=== PATIENT | male | born 1955 | race Caucasian/White ===

== ENCOUNTER → 2018-04-29 16:16 | Outpatient (CLI) | payer OTHER, SELFPAY ==
--- NOTE | 2018-04-29 16:18 | DI.MRI.S_ITS ---
PROCEDURE: MR JUAN DANIEL WO/W CON INDICATIONS: 62-year-old male status post scrotal surgery, with suspected anal fistula source of infection. TECHNIQUE: Coronal HASTE through the pelvis, oblique axial and coronal T1 and T2 fast spin echo through the anal canal. After the administration of contrast, oblique axial and coronal VIBE or T1 fast spin echo with fast saturation through the anal canal. COMPARISON: [facility], , TESTICLE IMAGING, 03/06/2018, 8:37. [facility], , TESTICLE IMAGING, 01/27/2018, 13:06. FINDINGS: Image quality: Excellent. Anorectal region: A right extra-sphincteric sinus track is present from the 2 to 4:00 positions, best seen on postcontrast images, with inferior skin opening just inferior to the anal verge on series 9 image 27. Additional enhancing right paramedian extra sphincteric sinus track is also noted just inferior to the anal verge on series 9 image 28, extending up to 13 cm anteriorly towards the scrotum. No additional fistula tracks present more superiorly between the internal and external anal sphincters. No rim-enhancing fluid collections to suggest associated abscess. Other soft tissues: Bladder wall thickness is normal. Trace bilateral scrotal hydroceles are present, as well as asymmetric small fluid within a patent right processus vaginalis. There is residual diffuse scrotal wall inflammatory thickening and enhancement. Visualized bowel loops are normal in caliber. Bones: Visualized bony structures demonstrate normal background marrow signal. There is significant L4-L5 disc degeneration. There is geographic lesion within the superior right femoral head with central fatty marrow signal, consistent with avascular necrosis. IMPRESSION: 1. Right paramedian extra sphincteric sinus track just inferior to the anal verge, tracking anteriorly up to 13 cm towards the scrotum. No associated abscess. 2. Additional left paramedian extra sphincteric sinus track from the 2 to 4:00 positions, tracking inferiorly with skin opening just below the anal verge. No visible communication with the anal canal to suggest true anal fistula. 3. Residual diffuse scrotal skin edema and enhancement, consistent with cellulitis and/or postoperative change. Trace bilateral scrotal hydroceles are present, as well as a fluid within a right patent processus vaginalis. 4. Asymmetric superior right femoral head avascular necrosis. In conjunction with the bilateral extra sphincteric perianal sinus tracts, findings suggest background Crohn's disease. Dictated by: Karlos Romero M.D. on 05/09/2018 at 9:07 Approved by: Karlos Romero M.D. on 05/09/2018 at 9:35
== END ==
PROVIDERS: Family Provider Internal Medicine; PCP Internal Medicine; Visit Provider Student in an Organized Health Care Education/Training Program
DX: K60.3 Anal fistula (principal); M87.851 Other osteonecrosis, right femur
CPT/HCPCS: 72197

== ENCOUNTER → 2019-03-22 11:04 | Outpatient (CLI) | payer OTHER, SELFPAY ==
[2019-03-22 11:50] LABS: Add Manual Diff / Slide Review NO; Basophils Absolute Auto 100 /uL (0-100); Basophils Percent Auto 1.2 % (0-2); Eosinophils Absolute Auto 200 /uL (0-450); Hematocrit 46.6 % (41-53); Hemoglobin 15.3 g/dL (13.5-17.5); Lymphocytes Absolute Auto 2100 /uL (1100-4500); Lymphocytes Percent Auto 25.5 % (25-40); Mean Corpuscular HGB Conc 32.9 % (30-36); Mean Corpuscular Hemoglobin 28.7 PG (26-34); Mean Corpuscular Volume 87.2 fL (80-100); Monocytes Absolute Auto 500 /uL (0-900); Monocytes Percent Auto 6.6 % (3-14); Neutrophils Absolute Auto 5200 /uL (1500-7000); Neutrophils Percent Auto 63.7 % (50-75); Platelet Count 141 X10^3/uL (150-400); Red Blood Cell Count 5.34 X10^6/uL (4.5-5.9); Red Cell Distribution Width 13.3 % (11.6-14.8); White Blood Cell Count 8.2 X10^3/uL (4.5-11.0)
[2019-03-22 12:32] LABS: Alanine Aminotransferase 20 IU/L (21-72); Albumin Globulin Ratio 1.1 (1.0-2.8); Alkaline Phosphatase 68 U/L (38-126); Aspartate Aminotransferase 19 IU/L (17-59); BUN Creatinine Ratio 22.5 (6-22); Bilirubin Total 0.4 mg/dL (0.2-1.3); Blood Urea Nitrogen 18 mg/dL (9-20); Carbon Dioxide 32 mmol/L (22-32); Chloride 101 mmol/L (98-107); Cholesterol 188 mg/dL (140-199); Estimated Glomerular Filt Rate > 60.0 mL/min (>60); Globulin 3.6 g/dL (1.7-4.1); Glucose 125 mg/dL (80-110); HDL Cholesterol 31 mg/dL (40-60); LDL Cholesterol Calculated 134 mg/dL (<100); Potassium 4.9 mmol/L (3.4-5.1); Sodium 139 mmol/L (137-145); Total Protein 7.6 g/dL (6.3-8.2); Triglycerides 115 mg/dL (35-150)
[2019-03-22 12:41] LABS: Digoxin 1.3 ng/mL (0.8-2.0)
[2019-03-22 13:04] LABS: HEMOLYSIS < 15 (0-50); Prostate Specific Antigen Scrn 1.54 ng/mL (0.1-4.0)
[2019-03-22 13:05] LABS: TSH w/ Reflex to FT4 1.83 uIU/mL (0.47-4.68)
== END ==
PROVIDERS: PCP Internal Medicine; Visit Provider Internal Medicine
DX: E11.9 Type 2 diabetes mellitus without complications (principal); E03.9 Hypothyroidism, unspecified; E66.9 Obesity, unspecified
CPT/HCPCS: 36415; 80053; 80061; 80162; 84443; 85025; G0103

== ENCOUNTER → 2020-01-25 09:56 | Outpatient (CLI) | payer OTHER, SELFPAY ==
[2020-01-25 10:36] LABS: Add Manual Diff / Slide Review NO; Basophils Absolute Auto 100 /uL (0-100); Basophils Percent Auto 0.7 % (0-2); Eosinophils Absolute Auto 200 /uL (0-450); Eosinophils Percent Auto 2.2 % (2-4); Hematocrit 44.6 % (41-53); Hemoglobin 15.1 g/dL (13.5-17.5); Lymphocytes Absolute Auto 2100 /uL (1100-4500); Lymphocytes Percent Auto 24.5 % (25-40); Mean Corpuscular HGB Conc 33.9 % (30-36); Mean Corpuscular Hemoglobin 29.3 PG (26-34); Mean Corpuscular Volume 86.5 fL (80-100); Monocytes Absolute Auto 500 /uL (0-900); Monocytes Percent Auto 6.1 % (3-14); Neutrophils Absolute Auto 5600 /uL (1500-7000); Neutrophils Percent Auto 66.5 % (50-75); Platelet Count 132 X10^3/uL (150-400); Red Blood Cell Count 5.15 X10^6/uL (4.5-5.9); Red Cell Distribution Width 13.4 % (11.6-14.8); White Blood Cell Count 8.4 X10^3/uL (4.5-11.0)
[2020-01-25 11:18] LABS: Hemoglobin A1C% w Est Avg Glu 10.1 % (4.0-6.0)
[2020-01-25 11:48] LABS: Alanine Aminotransferase 18 IU/L (<50); Albumin 3.9 g/dL (3.5-5.0); Albumin Globulin Ratio 1.1 (1.0-2.8); Alkaline Phosphatase 87 U/L (38-126); Aspartate Aminotransferase 19 IU/L (17-59); Bilirubin Total 0.7 mg/dL (0.2-1.3); Blood Urea Nitrogen 14 mg/dL (9-20); Carbon Dioxide 27 mmol/L (22-32); Chloride 99 mmol/L (98-107); Estimated Glomerular Filt Rate > 60.0 mL/min (>60); Globulin 3.4 g/dL (1.7-4.1); Glucose 263 mg/dL (80-110); HEMOLYSIS < 15 (0-50); Potassium 4.6 mmol/L (3.4-5.1); Sodium 133 mmol/L (137-145); Total Protein 7.3 g/dL (6.3-8.2)
[2020-01-25 11:54] LABS: Digoxin 1.5 ng/mL (0.8-2.0)
[2020-01-25 12:58] LABS: TSH w/ Reflex to FT4 2.01 uIU/mL (0.47-4.68)
== END ==
PROVIDERS: PCP Internal Medicine; Referring Provider Internal Medicine; Visit Provider Internal Medicine
DX: E11.9 Type 2 diabetes mellitus without complications (principal); E03.9 Hypothyroidism, unspecified; E66.9 Obesity, unspecified; I10 Essential (primary) hypertension; I48.0 Paroxysmal atrial fibrillation
CPT/HCPCS: 36415; 80053; 80162; 83036; 84443; 85025

== ENCOUNTER → 2020-08-17 10:03 | Outpatient (CLI) | payer OTHER, SELFPAY ==
[2020-08-17 11:46] LABS: Add Manual Diff / Slide Review NO; Basophils Absolute Auto 0 /uL (0-100); Basophils Percent Auto 0.4 % (0-2); Eosinophils Absolute Auto 100 /uL (0-450); Eosinophils Percent Auto 1.3 % (2-4); Hematocrit 44.3 % (41-53); Hemoglobin 14.7 g/dL (13.5-17.5); Lymphocytes Absolute Auto 1800 /uL (1100-4500); Mean Corpuscular HGB Conc 33.2 % (30-36); Mean Corpuscular Hemoglobin 28.8 PG (26-34); Mean Corpuscular Volume 86.8 fL (80-100); Monocytes Absolute Auto 600 /uL (0-900); Monocytes Percent Auto 6.1 % (3-14); Neutrophils Absolute Auto 7000 /uL (1500-7000); Neutrophils Percent Auto 73.2 % (50-75); Platelet Count 138 X10^3/uL (150-400); Red Blood Cell Count 5.11 X10^6/uL (4.5-5.9); Red Cell Distribution Width 12.9 % (11.6-14.8); White Blood Cell Count 9.6 X10^3/uL (4.5-11.0)
[2020-08-17 11:57] LABS: Alanine Aminotransferase 21 IU/L (<50); Albumin 3.9 g/dL (3.5-5.0); Albumin Globulin Ratio 1.1 (1.0-2.8); Alkaline Phosphatase 95 U/L (38-126); Aspartate Aminotransferase 21 IU/L (17-59); Bilirubin Total 0.8 mg/dL (0.2-1.3); Blood Urea Nitrogen 16 mg/dL (9-20); Calcium 8.7 mg/dL (8.4-10.2); Carbon Dioxide 28 mmol/L (22-32); Chloride 98 mmol/L (98-107); Cholesterol 130 mg/dL (140-199); Estimated Glomerular Filt Rate > 60.0 mL/min (>60); Globulin 3.5 g/dL (1.7-4.1); Glucose 273 mg/dL (80-110); HDL Cholesterol 29 mg/dL (40-60); HEMOLYSIS < 15 (0-50); LDL Cholesterol Calculated 81 mg/dL (<100); Potassium 4.6 mmol/L (3.4-5.1); Sodium 134 mmol/L (137-145); Total Protein 7.4 g/dL (6.3-8.2); Triglycerides 102 mg/dL (35-150)
[2020-08-17 12:43] LABS: TSH w/ Reflex to FT4 2.76 uIU/mL (0.47-4.68)
== END ==
PROVIDERS: PCP Internal Medicine; Referring Provider Internal Medicine; Visit Provider Internal Medicine
DX: E11.9 Type 2 diabetes mellitus without complications (principal); I48.0 Paroxysmal atrial fibrillation; E03.9 Hypothyroidism, unspecified; E66.9 Obesity, unspecified; I10 Essential (primary) hypertension
CPT/HCPCS: 36415; 80053; 80061; 84153; 84443; 85025

== ENCOUNTER → 2021-02-16 16:12 | Outpatient (CLI) | payer OTHER, SELFPAY ==
[2021-02-16] MEDS: COVID-19 VACC #1, MRNA(MOD) 100 MCG/0.5 ML VIAL IM (16:28)
== END ==
PROVIDERS: PCP Internal Medicine; Visit Provider Internal Medicine
DX: Z23 Encounter for immunization (principal)
CPT/HCPCS: 0011A; 91301

== ENCOUNTER → 2021-03-16 15:45 | Outpatient (CLI) | payer OTHER, SELFPAY ==
[2021-03-16] MEDS: COVID-19 VACC #2, MRNA(MOD) 100 MCG/0.5 ML VIAL IM (15:52)
== END ==
PROVIDERS: PCP Internal Medicine; Visit Provider Internal Medicine
DX: Z23 Encounter for immunization (principal)
CPT/HCPCS: 0012A; 91301

== ENCOUNTER → 2021-03-26 10:55 | Outpatient (CLI) | payer OTHER, SELFPAY ==
[2021-03-26 13:13] LABS: Hemoglobin A1C% w Est Avg Glu 8.2 % (4.0-6.0)
== END ==
PROVIDERS: PCP Internal Medicine; Referring Provider Internal Medicine; Visit Provider Internal Medicine
DX: E11.9 Type 2 diabetes mellitus without complications (principal)
CPT/HCPCS: 36415; 83036

== ENCOUNTER → 2022-12-03 13:55 | Outpatient (CLI) | payer OTHER, SELFPAY ==
[2022-12-03 15:28] LABS: COVID19 -Nasal RAPID Negative (Negative)
== END ==
PROVIDERS: PCP Internal Medicine; Visit Provider Surgery
DX: Z20.822 Contact with and (suspected) exposure to COVID-19 (principal); Z01.812 Encounter for preprocedural laboratory examination
CPT/HCPCS: 87635; C9803